=== PATIENT | male | born 1955 | race Caucasian/White ===

== ENCOUNTER → 2016-06-13 | Outpatient (REF) | payer OTHER | LOC: M SMT 12:56 | PROVIDERS: ATTEND Nurse Practitioner Women's Health | DX: R10.2 Pelvic and perineal pain (principal) ==

== ENCOUNTER → 2016-06-22 | Outpatient (CLI) | payer BC, OTHER ==
[~2016-06-22] MED LIST: ISOVUE-370 76% 100ML VIAL (Q9967) As Ordered ONE
--- NOTE | 2016-06-22 11:06 | REP ---
CT abdomen pelvis multiphasic scanning: Study is initially performed without IV contrast of the abdomen, pelvis not included. This is followed by IV contrast enhanced scanning from the diaphragms to the pubic symphysis initially during the portal venous phase of enhancement and later during the delayed equilibrium phase of enhancement. There are no comparison studies. The visualized lung peterson are unremarkable. The hepatic parenchyma, gallbladder, pancreas and spleen are unremarkable on all phases of the study. The adrenals, kidneys and abdominal aorta are unremarkable on all phases of the study. There is no bowel distension. No ascites. Pelvis: The appendix is unremarkable. There is no ascites. The bladder is unremarkable. There is no adenopathy. The pelvic bowel loops are unremarkable. The prostate is enlarged and effaces the bladder base. Impression: Prostate is enlarged and effaces the bladder base. Otherwise, negative CT of the abdomen and pelvis. No adenopathy or ascites. There is degenerative disc disease in the lumbar spine at L5 S1. Signed by Get Thorne MD 06/22/2016 09:37 A
== END | disposition home or self-care (01) ==
LOC: M RAD 08:31
PROVIDERS: ATTEND Nurse Practitioner Women's Health
DX: N42.81 Prostatodynia syndrome (principal); R10.2 Pelvic and perineal pain; N40.0 Benign prostatic hyperplasia without lower urinary tract symptoms
CPT/HCPCS: 74178; Q9967

== ENCOUNTER → 2016-06-25 | Outpatient (REF) | payer OTHER | LOC: M LAB REF 17:09 | PROVIDERS: ATTEND Nurse Practitioner Family | DX: N53.12 Painful ejaculation (principal); N52.9 Male erectile dysfunction, unspecified; Z77.21 Contact with and (suspected) exposure to potentially hazardous body fluids ==

== ENCOUNTER → 2016-08-03 | Outpatient (REF) | payer OTHER ==
[2016-08-05 08:06] LABS: Lyme Disease IgG Ab 18 kDa Ban Absent (.); Lyme Disease IgG Ab 23 kDa Ban Present (.); Lyme Disease IgG Ab 28 kDa Ban Absent (.); Lyme Disease IgG Ab 30 kDa Ban Present (.); Lyme Disease IgG Ab 39 kDa Ban Absent (.); Lyme Disease IgG Ab 41 kDa Ban Present (.); Lyme Disease IgG Ab 45 kDa Ban Absent (.); Lyme Disease IgG Ab 58 kDa Ban Present (.); Lyme Disease IgG Ab 66 kDa Ban Absent (.); Lyme Disease IgG Ab 93 kDa Ban Absent (.); Lyme Disease IgG West Blot Int Negative (.); Lyme Disease IgG/IgM Antibodie 1.02 ISR (0.00-0.90); Lyme Disease IgM Ab 23 kDa Ban Absent (.); Lyme Disease IgM Ab 39 kDa Ban Absent (.); Lyme Disease IgM Ab 41 kDa Ban Absent (.); Lyme Disease IgM Ab Quantitati <0.80 index (0.00-0.79); Lyme Disease IgM West Blot Int Negative (.)
== END ==
LOC: M LAB REF 12:30
PROVIDERS: ATTEND Nurse Practitioner Family
DX: R53.83 Other fatigue (principal)

== ENCOUNTER → 2016-08-10 | Outpatient (REF) | payer OTHER | LOC: M LAB REF 11:58 | PROVIDERS: ATTEND Nurse Practitioner Family | DX: N52.9 Male erectile dysfunction, unspecified (principal) ==

== ENCOUNTER → 2016-09-06 | Outpatient (REF) | payer OTHER ==
[2016-09-06 13:05] LABS: CREATININE FOR GFR 1.3 MG/DL (0.70-1.30); GLOMERULAR FILTRATION RATE 59.9 (>49)
== END ==
LOC: M LABDRAW1 11:35
PROVIDERS: ATTEND Orthopaedic Surgery
DX: M47.896 Other spondylosis, lumbar region (principal)

== ENCOUNTER 2016-12-26 14:59 | Emergency (ER) | payer BC, OTHER ==
[~2016-12-26] VITALS: Ht 188 cm; Wt 84.1 kg
[2016-12-26] MEDS ORDERED: ATOR40TA75 PO (15:09)
[2016-12-26] MEDS ORDERED: TEMA30CA PO (15:09)
[2016-12-26] MEDS ORDERED: FLUT1SPR2 (15:09)
[2016-12-26] MEDS ORDERED: CIAL5TAB PO (15:09)
[2016-12-26] MEDS ORDERED: ONDANSETRON 4MG/2ML VIAL (J2405) IV ONE (16:00)
[2016-12-26] MEDS ORDERED: NS 1,000 ML IV ONE (16:00)
[2016-12-26 16:30] LABS: ADD MANUAL DIFFER YES; MEAN CORPUSCULAR HEMOGLOBIN 30.6 pg (27.0-33.0); MEAN CORPUSCULAR HGB CONC 35.2 g/dl (32.0-36.5); MEAN CORPUSCULAR VOLUME 87.1 fl (80.0-96.0); PLATELET COUNT, AUTOMATED 133 k/mm3 (150-450); RED CELL DISTRIBUTION WIDTH 12.9 % (11.5-14.5); WHITE BLOOD COUNT 7.4 K/mm3 (4.0-10.0)
[2016-12-26 16:44] LABS: ALBUMIN 3.8 GM/DL (3.2-5.2); ALBUMIN/GLOBULIN RATIO 1.46 (1.00-1.93); ALKALINE PHOSPHATASE 66 U/L (45-117); ALT/SGPT 32 U/L (12-78); AMYLASE 25 U/L (25-115); ANION GAP 9 MEQ/L (8-16); AST/SGOT 20 U/L (15-37); BILIRUBIN,DIRECT 0.2 MG/DL (0.0-0.2); BLOOD UREA NITROGEN 22 MG/DL (7-18); CALCIUM LEVEL 8.5 MG/DL (8.8-10.2); CARBON DIOXIDE LEVEL 27 MEQ/L (21-32); CHLORIDE LEVEL 107 MEQ/L (98-107); CREATININE FOR GFR 1.28 MG/DL (0.70-1.30); GLOMERULAR FILTRATION RATE > 60.0 (>49); GLUCOSE, FASTING 89 MG/DL (80-110); POTASSIUM SERUM 4.3 MEQ/L (3.5-5.1); SODIUM LEVEL 143 MEQ/L (136-145); TOTAL PROTEIN 6.4 GM/DL (6.4-8.2)
[2016-12-26] MEDS ORDERED: KETOROLAC 30 MG/ML VIAL (J1885) IV ONE (17:15)
[2016-12-26] MEDS ORDERED: ZOFR4TAB3 PO (17:27)
[2016-12-26 17:40] VITALS: BP 144/71
== END 2016-12-26 17:52 | disposition home or self-care (01) ==
LOC: M ED 14:59
DX: K52.89 Other specified noninfective gastroenteritis and colitis (principal); E86.0 Dehydration; R10.84 Generalized abdominal pain; R11.2 Nausea with vomiting, unspecified; R19.7 Diarrhea, unspecified; I48.91 Unspecified atrial fibrillation; M54.5 Low back pain; Z79.899 Other long term (current) drug therapy
CPT/HCPCS: 36415; 80048; 80076; 82150; 83690; 85025; 96361; 96374; 99283; J1885; J2405

== ENCOUNTER → 2017-09-06 | Outpatient (REF) | payer OTHER ==
[2017-09-06 13:30] LABS: TESTOSTERONE 247 NG/DL (241-827)
== END ==
LOC: M LAB REF 09:32
DX: A54.5 Gonococcal pharyngitis (principal); E29.1 Testicular hypofunction

== ENCOUNTER 2017-10-05 15:06 | Emergency (ER) | payer BC, OTHER ==
[2017-10-05 15:14] LABS: BASO # 0.1 10^3/uL (0.0-0.2); BASO % 0.5 % (0.0-1.0); EOS # 0.1 10^3/uL (0.0-0.50); EOS % 0.6 % (0.0-3.0); HEMATOCRIT 45.9 % (42.0-52.0); HEMOGLOBIN 16.3 g/dl (13.5-17.5); IMMATURE GRANULOCYTE % 0.4 % (0-3.0); LYMPH % 10.1 % (24.0-44.0); MEAN CORPUSCULAR HEMOGLOBIN 30.2 pg (27.0-33.0); MEAN CORPUSCULAR HGB CONC 35.5 g/dl (32.0-36.5); MONO # 0.6 10^3/uL (0.0-0.8); MONO % 6.2 % (0.0-5.0); NEUTROPHILS # 7.7 10^3/uL (1.8-7.7); NEUTROPHILS % 82.2 % (36.0-66.0); PLATELET COUNT, AUTOMATED 150 10^3/uL (150-450); RED CELL DISTRIBUTION WIDTH 12.1 % (11.5-14.5); WHITE BLOOD COUNT 9.4 10^3/uL (4.0-10.0)
[2017-10-05] MEDS: NS 500 ML IV (15:24)
[2017-10-05 15:29] LABS: ALBUMIN 4.2 GM/DL (3.2-5.2); ALBUMIN/GLOBULIN RATIO 1.31 (1.00-1.93); ALKALINE PHOSPHATASE 74 U/L (45-117); ALT/SGPT 41 U/L (12-78); ANION GAP 7 MEQ/L (8-16); AST/SGOT 21 U/L (7-37); BILIRUBIN,DIRECT 0.1 MG/DL (0.0-0.2); BILIRUBIN,TOTAL 0.5 MG/DL (0.2-1.0); BLOOD UREA NITROGEN 18 MG/DL (7-18); CALCIUM LEVEL 8.7 MG/DL (8.8-10.2); CARBON DIOXIDE LEVEL 27 MEQ/L (21-32); CHLORIDE LEVEL 109 MEQ/L (98-107); CPK CREATINE PHOSPHOKINASE 315 U/L (39-308); CREATININE FOR GFR 1.22 MG/DL (0.70-1.30); FREE T4 1.06 NG/DL (0.76-1.46); GLOMERULAR FILTRATION RATE > 60.0 (>49); GLUCOSE, FASTING 98 MG/DL (70-100); POTASSIUM SERUM 3.5 MEQ/L (3.5-5.1); SODIUM LEVEL 143 MEQ/L (136-145); TOTAL PROTEIN 7.4 GM/DL (6.4-8.2); TROPONIN I < 0.02 NG/ML (< 0.10)
[2017-10-05 15:34] LABS: CK-MB VALUE MASS 3.4 NG/ML (<3.6); MB/CK RELATIVE INDEX 1.07 (< OR =4); NT-PRO BNP 76 PG/ML (<125); THYROID STIMULATING HORMONE 0.807 uIU/ML (0.358-3.740)
[2017-10-05 17:55] LABS: CPK CREATINE PHOSPHOKINASE 292 U/L (39-308); TROPONIN I < 0.02 NG/ML (< 0.10)
[2017-10-05 17:56] LABS: CK-MB VALUE MASS 2.7 NG/ML (<3.6); MB/CK RELATIVE INDEX 0.92 (< OR =4)
[2017-10-05] MEDS: METOPROLOL SUCC *XL* 25MG TAB (TopROL *XL*) PO (18:08)
== END 2017-10-05 18:12 | disposition home or self-care (01) ==
LOC: M ED 15:06
DX: R00.2 Palpitations (principal); I48.91 Unspecified atrial fibrillation; I10 Essential (primary) hypertension; E78.5 Hyperlipidemia, unspecified; K21.9 Gastro-esophageal reflux disease without esophagitis; Z82.49 Family history of ischemic heart disease and other diseases of the circulatory system; Z79.899 Other long term (current) drug therapy
CPT/HCPCS: 93005

== ENCOUNTER 2017-11-16 21:57 | Emergency (ER) | payer BC, OTHER ==
[2017-11-17] LABS: BASO # 0.1 10^3/uL (0.0-0.2); BASO % 0.8 % (0.0-1.0); EOS # 0.2 10^3/uL (0.0-0.50); EOS % 2.5 % (0.0-3.0); HEMATOCRIT 43.3 % (42.0-52.0); HEMOGLOBIN 15.3 g/dl (13.5-17.5); IMMATURE GRANULOCYTE % 0.3 % (0-3.0); LYMPH # 1.7 10^3/uL (1.5-4.5); MEAN CORPUSCULAR HEMOGLOBIN 30.3 pg (27.0-33.0); MEAN CORPUSCULAR HGB CONC 35.3 g/dl (32.0-36.5); MEAN CORPUSCULAR VOLUME 85.7 fl (80.0-96.0); MONO # 0.5 10^3/uL (0.0-0.8); MONO % 8.3 % (0.0-5.0); NEUTROPHILS % 62.1 % (36.0-66.0); PLATELET COUNT, AUTOMATED 162 10^3/uL (150-450); RED BLOOD COUNT 5.05 10^6/uL (4.30-6.10); WHITE BLOOD COUNT 6.5 10^3/uL (4.0-10.0)
[2017-11-17] MEDS: METOPROLOL SUCC *XL* 25MG TAB (TopROL *XL*) PO (00:05)
[2017-11-17] MEDS: ASPIRIN 81 MG CHEW TABLET PO (00:05)
[2017-11-17 00:12] LABS: INR 1.02; PROTHROMBIN TIME 13.5 SECONDS (12.1-14.4)
[2017-11-17 00:27] LABS: ALBUMIN 3.7 GM/DL (3.2-5.2); ALBUMIN/GLOBULIN RATIO 1.48 (1.00-1.93); ALKALINE PHOSPHATASE 69 U/L (45-117); ALT/SGPT 36 U/L (12-78); ANION GAP 9 MEQ/L (8-16); AST/SGOT 21 U/L (7-37); BILIRUBIN,DIRECT 0.1 MG/DL (0.0-0.2); BILIRUBIN,TOTAL 0.4 MG/DL (0.2-1.0); BLOOD UREA NITROGEN 27 MG/DL (7-18); CARBON DIOXIDE LEVEL 26 MEQ/L (21-32); CHLORIDE LEVEL 110 MEQ/L (98-107); CK-MB VALUE MASS 3.2 NG/ML (<3.6); CPK CREATINE PHOSPHOKINASE 407 U/L (39-308); CREATININE FOR GFR 1.23 MG/DL (0.70-1.30); GLOMERULAR FILTRATION RATE > 60.0 (>49); GLUCOSE, FASTING 112 MG/DL (70-100); MB/CK RELATIVE INDEX 0.78 (< OR =4); POTASSIUM SERUM 3.6 MEQ/L (3.5-5.1); SODIUM LEVEL 145 MEQ/L (136-145); TOTAL PROTEIN 6.2 GM/DL (6.4-8.2); TROPONIN I < 0.02 NG/ML (< 0.10)
[2017-11-17 00:29] LABS: ETHYL ALCOHOL (ETHANOL) < 0.003 % (0.000-0.010)
== END 2017-11-17 01:40 | disposition home or self-care (01) ==
LOC: M ED 21:57
DX: I48.92 Unspecified atrial flutter (principal); E78.5 Hyperlipidemia, unspecified; K21.9 Gastro-esophageal reflux disease without esophagitis; M54.9 Dorsalgia, unspecified; Z79.899 Other long term (current) drug therapy; Z79.82 Long term (current) use of aspirin
CPT/HCPCS: 93005

== ENCOUNTER → 2017-11-28 | Outpatient (REF) | payer BC, OTHER ==
[2017-11-28 13:47] LABS: C REACTIVE PROTEIN QUANTITATIV < 0.30 MG/DL (0.00-0.30)
== END ==
LOC: M LAB REF 13:14
DX: M25.539 Pain in unspecified wrist (principal)
CPT/HCPCS: 86140

== ENCOUNTER 2018-10-12 05:54 | Emergency (ER) | payer BC, MEDICAID, OTHER ==
[~2018-10-12] VITALS: Ht 185.4 cm; Wt 90.9 kg
[~2018-10-12 05:54] MED LIST changes: +ASPI-1 PO; +ATOR40TA75 PO; +CIAL5TAB PO; +FLUT1SPR2; -ISOVUE-370 76% 100ML VIAL (Q9967) As Ordered ONE; +METO1TAB32 PO; +OMEP20CA3 PO; +RAPA8CAP4; +TEMA30CA PO; +ZOFR4TAB14 PO
[2018-10-12] MEDS ORDERED: IBUP-1114 PO (06:16)
[2018-10-12] MEDS ORDERED: KETOROLAC 30 MG/ML VIAL (J1885) IV ONE (06:45)
[2018-10-12] MEDS ORDERED: NS 1,000 ML IV ONE (06:45)
[2018-10-12 07:13] LABS: BASO % 0.8 % (0.0-1.0); EOS # 0.2 10^3/uL (0.0-0.50); EOS % 3.6 % (0.0-3.0); HEMATOCRIT 46.2 % (42.0-52.0); HEMOGLOBIN 15.8 g/dl (13.5-17.5); LYMPH # 1.2 10^3/uL (1.5-4.5); LYMPH % 24.1 % (24.0-44.0); MEAN CORPUSCULAR HEMOGLOBIN 30.2 pg (27.0-33.0); MEAN CORPUSCULAR HGB CONC 34.2 g/dl (32.0-36.5); MEAN CORPUSCULAR VOLUME 88.2 fl (80.0-96.0); MONO # 0.5 10^3/uL (0.0-0.8); MONO % 9.7 % (0.0-5.0); NEUTROPHILS # 3.1 10^3/uL (1.8-7.7); NEUTROPHILS % 61.4 % (36.0-66.0); PLATELET COUNT, AUTOMATED 141 10^3/uL (150-450); RED BLOOD COUNT 5.24 10^6/uL (4.30-6.10)
[2018-10-12 07:45] LABS: ALBUMIN 3.7 GM/DL (3.2-5.2); ALT/SGPT 53 U/L (12-78); BILIRUBIN,DIRECT 0.2 MG/DL (0.0-0.2); BILIRUBIN,TOTAL 0.7 MG/DL (0.2-1.0); BLOOD UREA NITROGEN 17 MG/DL (7-18); CALCIUM LEVEL 8.5 MG/DL (8.8-10.2); CARBON DIOXIDE LEVEL 26 MEQ/L (21-32); CHLORIDE LEVEL 109 MEQ/L (98-107); CREATININE FOR GFR 1.17 MG/DL (0.70-1.30); GLOMERULAR FILTRATION RATE > 60.0 (>49); GLUCOSE, FASTING 105 MG/DL (70-100); LIPASE 169 U/L (73-393); POTASSIUM SERUM 4.9 MEQ/L (3.5-5.1); SODIUM LEVEL 141 MEQ/L (136-145); TOTAL PROTEIN 6.7 GM/DL (6.4-8.2)
[2018-10-12] MEDS ORDERED: ISOVUE-370 76% 100ML VIAL (Q9967) As Ordered ONE (07:49)
--- NOTE | 2018-10-12 08:50 | REP ---
Clinical: Left groin pain. Technique: Axial contrast enhanced images from the lung bases through the bilateral lower extremities using arterial angiographic technique with coronal and sagittal re-formations as well as 3-D MIP reconstructions of the arterial system. Findings: While mild scattered partially calcified atherosclerotic changes are noted of the aorta and branch vessels including the main renal arteries and iliac arteries, there is satisfactory perfusion without evidence for occlusion or obvious significant stenosis to the level of the proximal calf/trifurcation. Suboptimal evaluation of the arteries to the lower extremities below the midcalf noted. Of note, a very subtle focal dissection involving the left external iliac artery beginning approximately 2.5 cm distal to the bifurcation and terminating before the common femoral artery cannot be excluded (images 124-139) but demonstrates otherwise normal homogeneous enhancement. At this point in time this may represent an incidental finding but may warrant followup. Lung bases are clear. Visualized heart and pericardium normal. Liver, spleen, pancreas, gallbladder, bilateral adrenal glands kidneys appear normal for arterial phase enhancement. The enteric system is without obstruction or acute inflammatory process. Scattered colonic diverticula noted without acute diverticulitis. Pelvis demonstrates normal bladder with mildly prominent prostate gland measuring approximately 3.7 cm maximal diameter. No inguinal hernia identified. No pelvic fluid. No intraperitoneal or retroperitoneal adenopathy. Musculoskeletal structures demonstrate age-related changes without focal osseous abnormality. Impression: 1. Mild atherosclerotic changes noted without evidence for aneurysm, occlusion, or significant stenosis. 2. There is suggestion for a focal dissection involving the left external iliac artery (EIA) but with satisfactory enhancement and no associated area of stenosis or occlusion and the downstream portion of the distal EIA through the groin into the left lower extremity appears normal. 3. Scattered colonic diverticula without acute diverticulitis. 4. Mildly prominent prostate gland. Electronically Signed by Jared Ruffin MD 10/12/2018 08:43 A
[2018-10-12 09:57] VITALS: BP 116/59
--- NOTE | 2018-10-15 16:41 | ED PDOC ---
Post-Departure Follow-Up dr gayle faxed formal report of ct angio abd for fu Laureano Stanton MD October 15, 2018 16:41
== END 2018-10-12 10:08 | disposition home or self-care (01) ==
LOC: M ED 05:54
DX: R10.9 Unspecified abdominal pain (principal); I77.72 Dissection of iliac artery; I70.90 Unspecified atherosclerosis; R93.5 Abnormal findings on diagnostic imaging of other abdominal regions, including retroperitoneum; K57.32 Diverticulitis of large intestine without perforation or abscess without bleeding; Z79.82 Long term (current) use of aspirin; Z79.899 Other long term (current) drug therapy
CPT/HCPCS: 36415; 75635; 80048; 80076; 81001; 83690; 85025; 96361; 96374; 99284; J1885; Q9967

== ENCOUNTER → 2018-12-26 | Outpatient (REF) | payer OTHER ==
[~2018-12-26] MED LIST changes: +IBUP-1114 PO; -OMEP20CA3 PO; +OMEP20CA4 PO
== END ==
LOC: M LAB REF 12:17
PROVIDERS: ATTEND Nurse Practitioner Family
DX: N41.1 Chronic prostatitis (principal)

== ENCOUNTER → 2019-01-05 | Outpatient (CLI) | payer OTHER ==
--- NOTE | 2019-01-05 11:06 | REP ---
Bilateral lower extremity arterial Doppler ultrasound: History: Pain in the legs. Findings: Mild plaquing is seen bilaterally. No high-grade stenosis or occlusion is seen. Normal arterial Doppler triphasic waveforms are observed bilaterally. The ankle brachial indices are normal bilaterally measured at 1.2 on the right and left. Velocity chart right lower extremity arteries: CF A PSV 187 cm/S Profunda 152 Proximal SFA 129 Mid SFA 110 Distal SFA 101 Popliteal 66 Proximal AT A 59 Tibioperoneal trunk 110 Proximal GROMMET MACHINE OPERATOR 57 Distal GROMMET MACHINE OPERATOR 73 Distal AT A 73 Velocity chart left lower extremity arteries: CF A 166 cm/S Profunda 135 Proximal SFA 1/4 Mid SFA 101 Distal SFA 67 Popliteal 67 Proximal AT A 52 Tibioperoneal trunk 72 Proximal GROMMET MACHINE OPERATOR 43 Distal GROMMET MACHINE OPERATOR 79 Distal AT A 93 Electronically Signed by Geronimo Candelaria MD 01/05/2019 10:58 A
== END ==
LOC: M RAD 09:40
PROVIDERS: ATTEND Physician Assistant
DX: M79.606 Pain in leg, unspecified (principal)

== ENCOUNTER → 2019-07-27 | Outpatient (CLI) | payer OTHER ==
[~2019-07-27] MED LIST changes: +OMEP1CAP73 PO; -OMEP20CA4 PO
--- NOTE | 2019-07-29 07:45 | REP ---
Clinical: Symptoms related to atherosclerotic disease and intermittent claudication. Technique: Real time rankin scale and color Doppler evaluation of the bilateral lower extremity arterial vasculature using linear high frequency transducer. Comparison: 01/05/2019 Findings: There is evidence for prior left iliac stent which appears patent. Rankin scale and color images demonstrate no significant plaquing or areas of stenosis. Doppler interrogation demonstrates normal triphasic arterial wave forms and velocities bilaterally. Peak systolic velocities (cm/sec) RIGHT LEFT DEJA 1.1 1.1 Common iliac artery 137 97 External iliac artery 162 134 Common femoral artery 111 103 Profunda femoris 70 76 SFA (proximal) 75 77 SFA (mid) 100 88 SFA (distal) 66 68 Popliteal artery 52 55 REJI (prox.) 61 60 Tibioperoneal trunk 40 49 WINERY CELLAR HAND (prox.) 52 36 WINERY CELLAR HAND (distal) 67 44 REJI (distal) 94 57 Impression: 1. Patent left iliac artery stent. 2. No significant atheromatous plaquing or evidence for stenosis. Electronically Signed by Jared Ruffin MD 07/29/2019 07:37 A
== END ==
LOC: M RAD 12:17
PROVIDERS: ATTEND Physician Assistant
DX: I73.9 Peripheral vascular disease, unspecified (principal)

== ENCOUNTER → 2019-09-02 | Outpatient (REF) | payer OTHER | LOC: M LAB REF 12:51 | PROVIDERS: ATTEND Internal Medicine | DX: N52.9 Male erectile dysfunction, unspecified (principal) ==

== ENCOUNTER → 2019-09-18 | Outpatient (REF) | payer OTHER ==
[2019-09-22 14:07] LABS: PSA TOTAL 3.4 ng/mL (0.0-4.0)
== END ==
LOC: M LAB REF 17:26
PROVIDERS: ATTEND Internal Medicine
DX: C61 Malignant neoplasm of prostate (principal)

== ENCOUNTER → 2019-10-07 | Outpatient (REF) | payer OTHER | LOC: M LAB REF 12:49 | PROVIDERS: ATTEND Internal Medicine | DX: I48.0 Paroxysmal atrial fibrillation (principal) ==

== ENCOUNTER 2020-02-19 16:52 | Emergency (ER) | payer OTHER ==
[~2020-02-19] VITALS: Ht 188 cm; Wt 91.8 kg
[2020-02-19] MEDS ORDERED: DIGO0.123 (17:02)
[2020-02-19] MEDS ORDERED: CEPH500C (17:02)
[2020-02-19 17:49] LABS: HEMATOCRIT 44.1 % (42.0-52.0); HEMOGLOBIN 14.7 g/dl (13.5-17.5); MEAN CORPUSCULAR HEMOGLOBIN 28.9 pg (27.0-33.0); MEAN CORPUSCULAR HGB CONC 33.3 g/dl (32.0-36.5); MEAN CORPUSCULAR VOLUME 86.6 fl (80.0-96.0); PLATELET COUNT, AUTOMATED 150 10^3/uL (150-450); RED BLOOD COUNT 5.09 10^6/uL (4.30-6.10); WHITE BLOOD COUNT 8.7 10^3/uL (4.0-10.0)
[2020-02-19 17:58] LABS: INR 0.96
[2020-02-19 18:12] VITALS: BP 121/56
== END 2020-02-19 18:20 | disposition home or self-care (01) ==
LOC: M ED 16:52
DX: R31.9 Hematuria, unspecified (principal); Z98.890 Other specified postprocedural states; I11.9 Hypertensive heart disease without heart failure; K21.9 Gastro-esophageal reflux disease without esophagitis; N40.1 Benign prostatic hyperplasia with lower urinary tract symptoms; Z79.899 Other long term (current) drug therapy; Z79.82 Long term (current) use of aspirin; Z79.2 Long term (current) use of antibiotics

== ENCOUNTER → 2020-07-20 | Outpatient (CLI) | payer SELFPAY ==
[~2020-07-20] MED LIST changes: +CEPH500C; +DIGO0.123
== END ==
LOC: M LABSMTC 09:52
PROVIDERS: ATTEND Pediatrics
DX: Z11.52 Encounter for screening for COVID-19 (principal)

== ENCOUNTER → 2020-12-27 | Outpatient (REF) | payer OTHER | LOC: M LAB REF 16:53 | PROVIDERS: ATTEND Internal Medicine | DX: Z11.59 Encounter for screening for other viral diseases (principal) ==

== ENCOUNTER → 2021-03-06 | Outpatient (REF) | payer OTHER | LOC: M LAB REF 16:38 | PROVIDERS: ATTEND Internal Medicine | DX: E29.1 Testicular hypofunction (principal) ==

== ENCOUNTER → 2021-09-04 | Outpatient (REF) | payer MEDICARE, OTHER ==
[2021-09-04 18:04] LABS: C REACTIVE PROTEIN QUANTITATIV < 0.30 MG/DL (0.00-0.30); RHEUMATOID FACTOR QUANT 21.6 IU/ML (<15.0)
== END ==
LOC: M LAB REF 17:19
PROVIDERS: ATTEND Internal Medicine
DX: M25.50 Pain in unspecified joint (principal)

== ENCOUNTER → 2022-06-21 | Outpatient (CLI) | payer MEDICARE | LOC: M PLAIMG 15:30 | PROVIDERS: ATTEND Internal Medicine | DX: M25.561 Pain in right knee (principal) ==

== ENCOUNTER → 2023-02-01 | Outpatient (REF) | payer MEDICARE ==
[2023-02-01 14:58] LABS: AMORPHOUS SEDIMENT SMALL (NEGATIVE); APPEARANCE, URINE TURBID (CLEAR); BACTERIA, URINE AUTO NEGATIVE (NEGATIVE); BILIRUBIN, URINE AUTO NEGATIVE (NEGATIVE); BLOOD, URINE BLOOD NEGATIVE (NEGATIVE); COLOR, URINE AMBER (YELLOW); GLUCOSE, URINE (UA) AUTO NEGATIVE (NEGATIVE); KETONE, URINE AUTO NEGATIVE (NEGATIVE); LEUKOCYTE ESTERASE, URINE AUTO NEGATIVE (NEGATIVE); NITRITE, URINE AUTO NEGATIVE (NEGATIVE); PROTEIN, URINE AUTO NEGATIVE (NEGATIVE); RBC, URINE AUTO 0 /HPF (0-3); SPECIFIC GRAVITY URINE AUTO 1.029 (1.002-1.035); SQUAMOUS EPITHELIAL CELL UR AU 0 /HPF (0-6); UROBILINOGEN, URINE AUTO 0.2 mg/dL (0.0-2.0); WBC, URINE AUTO 0 /HPF (0-3)
== END ==
LOC: M LAB REF 13:46
PROVIDERS: ATTEND Internal Medicine
DX: N40.1 Benign prostatic hyperplasia with lower urinary tract symptoms (principal)

== ENCOUNTER → 2023-08-02 | Outpatient (CLI) | payer MEDICARE | LOC: M SOG 14:35 | PROVIDERS: ATTEND Physician Assistant | DX: M25.561 Pain in right knee (principal); M17.11 Unilateral primary osteoarthritis, right knee ==

== ENCOUNTER → 2023-09-03 | Outpatient (CLI) | payer MEDICARE | LOC: M PLAIMG 15:32 | PROVIDERS: ATTEND Physician Assistant | DX: M25.561 Pain in right knee (principal) ==

== ENCOUNTER → 2023-11-28 | Outpatient (REF) | payer MEDICARE | LOC: M LAB REF 16:05 | PROVIDERS: ATTEND Internal Medicine | DX: Z11.59 Encounter for screening for other viral diseases (principal); R53.83 Other fatigue ==

== ENCOUNTER → 2024-02-18 | Outpatient (CLI) | payer MEDICARE | LOC: M SLEEP 20:00 | PROVIDERS: ATTEND Physician Assistant | DX: G47.61 Periodic limb movement disorder (principal) ==

== ENCOUNTER → 2024-04-21 | Outpatient (CLI) | payer MEDICARE | LOC: M RAD 13:50 | PROVIDERS: ATTEND Internal Medicine | DX: R05.9 Cough, unspecified (principal) ==

== ENCOUNTER → 2024-08-05 | Outpatient (CLI) | payer MEDICARE | LOC: M WHC 08:47 | PROVIDERS: ATTEND Internal Medicine | DX: R74.01 Elevation of levels of liver transaminase levels (principal) ==

== ENCOUNTER 2024-11-22 18:37 | Emergency (ER) | payer MEDICARE ==
[~2024-11-22] VITALS: Ht 188 cm; Wt 88.0 kg
[2024-11-22 19:40] LABS: BASO # 0.0 10^3/uL (0.0-0.2); BASO % 0.7 % (0.0-1.0); EOS # 0.2 10^3/uL (0.0-0.5); EOS % 2.6 % (0.0-3.0); LYMPH # 1.6 10^3/uL (1.5-5.0); LYMPH % 25.3 % (24.0-44.0); MONO # 0.5 10^3/uL (0.0-0.8); MONO % 7.4 % (2.0-8.0); NEUTROPHILS # 3.9 10^3/uL (1.5-8.5); NEUTROPHILS % 63.7 % (36.0-66.0); PLATELET COUNT, AUTOMATED 159 10^3/uL (150-450)
[2024-11-22 19:42] LABS: APPEARANCE, URINE CLEAR (CLEAR); BACTERIA, URINE AUTO NEGATIVE (NEGATIVE); BILIRUBIN, URINE AUTO NEGATIVE (NEGATIVE); BLOOD, URINE BLOOD NEGATIVE (NEGATIVE); GLUCOSE, URINE (UA) AUTO NEGATIVE (NEGATIVE); KETONE, URINE AUTO TRACE mg/dL (NEGATIVE); LEUKOCYTE ESTERASE, URINE AUTO NEGATIVE (NEGATIVE); MUCUS, URINE MODERATE (NEGATIVE); NITRITE, URINE AUTO NEGATIVE (NEGATIVE); PROTEIN, URINE AUTO 1+ mg/dL (NEGATIVE); RBC, URINE AUTO 0 /HPF (0-3); SPECIFIC GRAVITY URINE AUTO 1.036 (1.002-1.035); SQUAMOUS EPITHELIAL CELL UR AU 0 /HPF (0-6); UROBILINOGEN, URINE AUTO 0.2 mg/dL (0.0-2.0); WBC, URINE AUTO 1 /HPF (0-3)
[2024-11-22 19:51] LABS: ERYTHROCYTE SEDIMENTATION RATE 4 mm/hr (0-20)
[2024-11-22 20:08] LABS: C REACTIVE PROTEIN QUANTITATIV < 0.50 MG/DL (<1.0)
[2024-11-22 20:09] LABS: ALT/SGPT 45 U/L (7.0-40); AST/SGOT 37 U/L (<34); CALCIUM LEVEL 9.2 MG/DL (8.3-10.6); CARBON DIOXIDE LEVEL 27 MMOL/L (20-31); CHLORIDE LEVEL 107 MMOL/L (98-107); CREATININE FOR GFR 1.08 MG/DL (0.70-1.30); GLOMERULAR FILTRATION RATE 74.8 (>49); POTASSIUM SERUM 4.2 MMOL/L (3.5-5.1); SODIUM LEVEL 143 MMOL/L (136-145)
[2024-11-22] MEDS ORDERED: ISOVUE-370 76% 100 ML VIAL As Ordered ONE (20:14)
[2024-11-22 20:59] VITALS: BP 145/81; TEMP 98.1; O2SAT 97
== END 2024-11-22 21:06 | disposition home or self-care (01) ==
LOC: M ED 18:37
DX: G89.18 Other acute postprocedural pain (principal); Z79.1 Long term (current) use of non-steroidal anti-inflammatories (NSAID); Z79.2 Long term (current) use of antibiotics; Z79.899 Other long term (current) drug therapy
CPT/HCPCS: 36415; 74177; 80047; 80048; 80076; 81001; 83690; 85025; 85652; 86140; 99284; Q9967